=== PATIENT | male | born 1970 | race Caucasian/White ===

== ENCOUNTER → 2016-07-11 08:52 | Day surgery (SDC) | payer BC, OTHER ==
[~2016-07-11 08:52] MED LIST: Acetaminophen TAB* 325 MG PO PRN; Buffered Lidocaine 1% SYRIN* 3 ML/SYR SYRINGE INTRADERM ONE; Bupivacaine 0.5% W/EPI SDV* 30 ML VIAL ONE; Clindamycin 900 MG IVPREMIX(* 900 MG/50 ML SDV IV ONE; Dexamethasone IV* 4 MG/ML 1 ML (4 MG) ONE; HYDROmorphone* 1 MG/ML 1 ML SYR IV PRN; Ibuprofen TAB* 600 MG PO PRN; Lidocaine 2% PF* 5 ML VIAL ONE; Metoclopramide IV* 5 MG/ML 2 ML VIAL IV PRN; Metoclopramide IV* 5 MG/ML 2 ML VIAL ONE; Midazolam* 1 MG/ML 2 ML VIAL (2 MG) ONE; Ondansetron INJ* 2 MG/ML VIAL ONE; Propofol* 10 MG/ML 20 ML BTL IV PUSH ONE; Scopolamine 1.5 mg* PATCH ONE; Scopolamine 1.5 mg* PATCH TRANSDERM PRN; Succinylcholine* 20 MG/ML 10 ML VIAL ONE; fentaNYL* 50 MCG/ML 2 ML VIAL (100 MCG VIAL) ONE; oxyCODONE TAB* 5 MG TAB ONE; oxyCODONE TAB* 5 MG TAB PO PRN
[2016-07-11] MEDS: fentaNYL* 50 MCG/ML 2 ML VIAL (100 MCG VIAL) IV PRN ×4 (13:39→14:05)
[2016-07-11 15:01] VITALS: BP 113/58
--- NOTE | 2016-07-12 04:20 | OP ---
DATE OF OPERATION: 07/11/16 [facility] DATE OF : 68 SURGEON: Keny Jaimes MD PLASTIC MOLDING OPERATOR: None. ANESTHESIOLOGIST: Dr. Montoya. ANESTHESIA: General endotracheal. PRE-OP DIAGNOSIS: Right inguinal hernia and left groin pain. POST-OP DIAGNOSIS: Bilateral inguinal hernia. OPERATIVE PROCEDURE: Laparoscopic preperitoneal repair of bilateral inguinal hernias with mesh. ESTIMATED BLOOD LOSS: Minimal. IV FLUIDS: Crystalloid. SPECIMEN: None. DRAINS: None. COMPLICATIONS: None. COUNTS: The instrument, needle, and sponge counts were correct. DESCRIPTION OF PROCEDURE: The patient was brought to the operating room and placed on the table supine. Sequential compression devices were placed on both lower extremities. General anesthesia was administered. The Boudreaux catheter was placed and the abdomen was prepped and draped in the usual sterile fashion. Time-out was performed. Local anesthetic was infiltrated into the skin and soft tissue prior to making each incision. Entry to preperitoneal space was through an infraumbilical curvilinear incision made to accommodate a 12-mm blunt port. The rectus fascia was identified to the right of midline, incised transversely, and the underlying muscle was retracted laterally, and a preperitoneal balloon dissector was placed down to the pubic symphysis, and this was insufflated under direct visualization. Subsequently, this was removed and a 12-mm blunt port was placed into the same space and insufflated with carbon dioxide to a pressure of 12 mmHg. Under direct visualization, 5 mm trocars were placed two in the lower midline. The dissection then proceeded on the left side where the patient was noted to have a small indirect inguinal hernia. The inferior epigastric vessels were identified, preserved anteriorly and the dissection proceeded laterally to the anterior superior iliac spine. During the dissection of the peritoneal membrane, this was torn and had to be closed with endoscopic clip placement. The dissection did proceed completely dissecting the peritoneum away from the hernial orifices. Subsequently, attention was returned to the right side and again dissection proceeded bluntly from the midline laterally identifying the pubic tubercle, Copper's ligament and inferior epigastric vessels. There appeared to be a small direct indirect inguinal hernia and a small indirect inguinal hernia. Again, the peritoneal membrane was dissected free and then the repair was performed with Bard 3D Max medium size mesh. This was placed into the preperitoneal space and tacked to the pubic tubercle and Copper's ligament with the CapSure device. The mesh was allowed to lay out laterally and then the attention was returned to the left side. Again, the repair was performed with a Bard 3DMax mesh for the right side. The mesh was positioned to cover the direct, indirect and femoral spaces. It was secured with the CapSure device to pubic tubercle and Jimenez's ligament. The mesh was observed in its position as the preperitoneal space was allowed to collapse upon itself. Next, peritoneoscopy was performed to assure that there was no exposed mesh. Upon inspection of the left side, the mesh appeared good. However, on inspection of the right side, there was still small rent in the peritoneum and so we re-established the preperitoneal view and used a clip immigration patrol inspector to clip off the opening. Subsequently, reinspection from the intraperitoneal compartment revealed that there was no exposed mesh. At this point, ports were removed and carbon dioxide was released. The infraumbilical site was closed in 2 layers with 0 Polysorb to approximate both posterior and anterior rectus fascia. Skin incisions were closed with 4-0 Monocryl in subcuticular fashion. Steri-Strips were applied. The patient tolerated the procedure well. It was extubated and transferred to recovery room in stable condition. CC: Apple Werner MD* [id number] #: [id number]
== END | disposition home or self-care (01) ==
LOC: OR 08:52
PROVIDERS: ATTEND Surgery
DX: K40.20 Bilateral inguinal hernia, without obstruction or gangrene, not specified as recurrent (principal)
CPT/HCPCS: A9270-GY; C1776; C1781; J0330; J1100; J2250; J2405; J2704; J3010

== ENCOUNTER 2018-03-25 19:00 | Emergency (ER) | payer OTHER ==
--- OUTSIDE RECORDS SUMMARY | 2018-03-25 19:36 | XMS REPORT | Continuity of Care Document ---
:1970 External Reference #:[id number] Author Name Apple Werner MD Address [address] [place] [address] Care Team Providers Name Role Phone Apple Werner MD FACP Primary Care Physician Unavailable Payers Type Date Identification Numbers Payment Provider Subscriber Effective: Policy Number: [id number] Of [employer] Arita 2009 Expires: 2011 PayID: [id number] [address] [address] ALEC Pool [id number] Effective: 2011 Policy Number: [id number] Of ROB Arita Expires: 2015 Group Name: Ra Quiroz [address] [address] PayID: [id number] ALEC Pool [id number] Effective: 2015 Policy Number: [id number] [facility] Simone Arita PayID: [id number] [address] [place] [address] Advance Directives Description No Information Available Problems Date Description Provider Status Onset: 12/27/2011 Immunologic Apple Werner MD Active Note: Consult with Dr. Morgan 12/21/11. Onset: 04/24/2016 Nocturia Apple Werner MD Active Onset: 12/09/2013 Rheumatoid arthritis Apple Werner MD Active Onset: 12/09/2013 Inflammatory spondylopathy Apple Werner MD Active Onset: 12/09/2013 Non-neoplastic nevus Apple Werner MD Active Onset: 09/24/2008 Obstructive sleep apnea syndrome Apple Werner MD Inactive Inactive: 12/09/2013 Family History Date Family Member(s) Problem(s) Comments General Arthritis Mother General Bladder Cancer Maternal Grandfather General Depression Mother General Atrial Fibrillation Grandmother (maternal) General Deep Vein Thrombosis Mother General Heart Disease Maternal GF General Stroke Maternal GM General Diabetes Maternal GF General Hypertension Paternal GF General Bladder Cancer Maternal GF Father No Current Problems Mother Arthritis Second Brother Schizophrenia Second Brother Smoker Second Brother Vertigo Third Brother Obesity First Sister Smoker First Sister Depression First Sister Drug Addiction First Sister Obesity Paternal Grandfather due to Natural Causes () Paternal Grandmother due to Natural Causes () Maternal Grandfather due to Natural Causes () Maternal Grandmother due to Natural Causes () Maternal Grandmother due to Stroke () Maternal Grandmother Atrial Fibrillation Social History Type Date Description Comments Sex Unknown Marital Status Marital Status Significant Other 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 Work Status Currently Working Tobacco Use Start: Unknown Never Smoked Cigarettes ETOH Use Drinks Alcoholic Beverages Occasionally ETOH Use Drinks 2 Alcoholic Beverages Per Week ETOH Use Currently consumes 3 beer and or wine alcohol a week. Recreational Drug Use Denies Drug Use Tobacco Use Start: Unknown Patient has never smoked Smoking Status Reviewed: 04/25/17 Patient has never smoked Exercise Type/Frequency Exercises regularly 30-60 min cycling and elenita fu and gym activity Allergies, Adverse Reactions, Alerts Date Description Reaction Status Severity Comments 06/08/2008 Penicillins Skin Rashes/Hives Active "As a child" "Tolerated amoxicillin with no problem" Medications Medication Date Status Form Strength Qnty SIG Indications Ordering Provider Celecoxib 03/05 Active Capsules 200mg 30cap 1 by mouth M79.671 Chiu /2018 s every day A Wat[place], with food MD for 2 weeks and than as needed. Clonazepam 03/05 Active Tablets 1mg 14tab take 1 F51.02 Chiu s tablet by A [place], mouth at MD bed time for anxiety and insomnia Neurontin 01/02 Active Capsules 100mg 90cap take 1 B02.9 Chiu s capsule by A [place], mouth 3 MD times per day for nerve disease Famciclovir 12/31 Hx Tablets 500mg 21tab take 1 B02.9 Chiu s tablet by Thierry Werner - mouth 01/07 every hours for 7 days for skin eruption due to viral infection No Active 04/24 Hx Unknown Medications /2016 - 12/31 Pantoprazole 09/[address] 40mg 30tab take 1 R05 Chiu Sodium s tablet A Carlos Werner one-half before dinner Levocetirizine 08/17 Hx Tablets 5mg 30tab take one J30.9 Chiu Dihydrochloride /2015 s tablet by Carlos Camarena mouth in 04/24 the evening for allergic rhinitis Fluticasone 08/17 Hx Suspension 50mcg/Act 16gm inhale 2 J30.9 Chiu Propionate sprays Carlos Camarena into 04/24 nostril daily in each nostril for allergic rhinitis Vitamin B 12/10 Hx Capsules 1 by mouth 266.9 Chiu Complex-C every day Carlos Camarena MD 04/24 Betamethasone 09/28 Hx Cream 0.05% 15gm apply 380.9 Chiu Dipropionate topically Carlos Camarena to the MD 12/09 affected area two times a day for skin condition with itching Doxycycline 02/09 Hx Capsules 100mg 2caps take 1 Chui Hyclate /2013 capsule by Thierry Werner - mouth 2 02/10 times day for 1 day Ibuprofen 04/02 Hx Tablets 200mg take 3 719.49 Endo, tablets by Carlos Zhao mouth 2 04/24 times per day 720.9 714.0 Viagra 07/02/2012 - Hx Tablets 100mg 6tabs take 1/2 to 1 302.72 Chiu A 04/24/2016 tablet by MD Alphonso mouth daily as needed for erectile dysfunction Hydroxychloroquine 07/01/2012 - Hx Tablets 200mg Take 1 tablet 720.9 Endo, Sulfate 09/30/2014 by mouth Pavel twice daily with food or milk 714.0 Amoxicillin 01/11/2012 - Hx Tablets 500mg 21tabs Take 1 tablet 463 Chiu A 01/18/2012 by mouth 3 MD Alphonso times per day for 7 days for infection Ibuprofen 05/31/2010 - Hx Tablets 200mg 2-3 by mouth 719.49 Endo, 12/01/2013 every 6 hours MD Pavel as needed Clonazepam 05/23/2010 - Hx Tablets 0.5mg 15tabs 1/2-1 po bid 309.28 Chiu A 08/31/2010 prn MD Alphonso 780.52 Sulfamethoxazole-TMP DS 04/01/2009 - Hx Tablets 800-160mg 20tabs 1 po 682.6 Chiu A 04/11/2009 bid MD Alphonso Immunizations CPT Code Status Date Vaccine Lot # [id number] Given 12/31/2016 Influenza Vaccine Quadrivalent Preser/Antibiotic Free Im Use 96019 Given 01/01/2016 Influenza Virus Split 3 Yrs And Above For Intramuscular Use 89307 Given 11/30/2014 Influenza Virus Split 3 Yrs And Above For Intramuscular Use 50232 Given 01/02/2012 Pneumococcal Vaccine 2Yrs Or Older PNEUMO [id number] 89952 Given 12/16/2011 Influenza Virus Split 3 Yrs And Above For Intramuscular Use 41095 Given 07/07/2008 Tdap-Tetanus, Diphtheria Toxoids/Acellular TDAP [id number] Pertussis Vaccine 7+ 86103 Given 01/01/2008 Influenza Virus Vaccine Split Virus Use For Individual 3Yr Older [id number] Refused 12/09/2013 Influenza Virus Split 3 Yrs And Above For Intramuscular Use Vital Signs Date Vital Result Comment 07/23/2017 12:40pm Body Temperature 98.3 F 04/25/2017 2:22pm Body Temperature 98.4 F O2 % BldC Oximetry 99 % Heart Rate 52 /min BP Systolic 120 mmHg BP Diastolic 70 mmHg BMI (Body Mass Index) 27.9 kg/m2 Weight 169.00 lb Height 65.25 inches 5'5.25" 04/24/2016 3:28pm Body Temperature 98.5 F O2 % BldC Oximetry 97 % Heart Rate 74 /min BP Systolic 100 mmHg BP Diastolic 60 mmHg BMI (Body Mass Index) 27.2 kg/m2 Weight 165.00 lb Height 65.25 inches 5'5.25" 08/18/2015 3:12pm Body Temperature 98.2 F Heart Rate 62 /min BP Systolic 85 mmHg BP Diastolic 60 mmHg 12/10/2014 4:18pm O2 % BldC Oximetry 98 % Heart Rate 48 /min BP Systolic 95 mmHg BP Diastolic 65 mmHg BMI (Body Mass Index) 26.9 kg/m2 Weight 164.00 lb Height 65.5 inches 5'5.50" 11/20/2014 11:26am Body Temperature 98.6 F 09/28/2014 2:25pm Body Temperature 98.6 F 12/09/2013 3:57pm Body Temperature 98.7 F O2 % BldC Oximetry 98 % Heart Rate 61 /min BP Systolic 105 mmHg BP Diastolic 65 mmHg BMI (Body Mass Index) 29.3 kg/m2 Weight 176.00 lb in office, clothed, with shoes Height 65 inches 5'5" 07/02/2012 11:07am Heart Rate 76 /min BP Systolic 110 mmHg BP Diastolic 80 mmHg BMI (Body Mass Index) 30.4 kg/m2 Weight 183.00 lb Height 65 inches 5'5" 01/11/2012 12:04pm Body Temperature 98.2 F O2 % BldC Oximetry 97 % Ra, AT Rest Heart Rate 85 /min BP Systolic 100 mmHg BP Diastolic 75 mmHg Height 65 inches 5'5" 01/02/2012 11:48am Heart Rate 60 /min BP Systolic 100 mmHg BP Diastolic 70 mmHg BMI (Body Mass Index) 31.9 kg/m2 Weight 192.00 lb Height 65 inches 5'5" 09/11/2011 2:05pm Heart Rate 70 /min BP Systolic 105 mmHg BP Diastolic 70 mmHg BMI (Body Mass Index) 32.4 kg/m2 Weight 195.00 lb Height 65 inches 5'5" 05/23/2010 4:03pm BMI (Body Mass Index) 31.1 kg/m2 Weight 187.00 lb Height 65 inches 5'5" 04/01/2009 9:39am Body Temperature 98.6 F BMI (Body Mass Index) 31.9 kg/m2 Weight 192.00 lb Height 65 inches 5'5" 09/24/2008 11:58am Heart Rate 66 /min BP Systolic 100 mmHg Supine BP Diastolic 65 mmHg Supine BP Systolic Recheck 95 mmHg Standing BP Diastolic Recheck 65 mmHg Standing 08/12/2008 5:03pm Heart Rate 70 /min Standing 80 BP Systolic 110 mmHg Supine BP Diastolic 70 mmHg Supine BP Systolic Recheck 90 mmHg Standing, asymptomatic BP Diastolic Recheck 70 mmHg Standing, asymptomatic Height 65 inches 5'5" 07/07/2008 4:31pm Body Temperature 98.4 F O2 % BldC Oximetry 98 % Heart Rate 70 /min BP Systolic 130 mmHg Bilateral Ue BP Diastolic 70 mmHg Bilateral Ue BMI (Body Mass Index) 32.4 kg/m2 Weight 195.00 lb Height 65 inches 5'5" Results Test Date Facility Test Result H/L Range Note CBC W/Diff 01/01/2018 [facility] White Blood Count 4.1 RBC Red Blood Count 5.24 Hemoglobin 15.0 Hematocrit 46.3 MCV (Corpuscular Volume) 88 MCH (Corpuscular Hemoglobin) 28.7 MCHC (Corpuscular Hemog Conc) 32.5 Low 33.8-36.5 g/dL RDW 16 Platelet Count 117 Low 136-304 K/uL MPV 6.9 Neutrophils 54.1 Lymphocytes 32.4 Monocytes 10.3 Eosinophils Fluid 1.8 Basophils 1.3 BMP 01/01/2018 [facility] Calcium Level 9.1 Creatinine W/O Egfr 1.1 Sodium 142 Carbon Dioxide 29 Glucose 101 High <100 Chloride 106 High 97-104 mmol/L Potassium 4.6 BUN 12 CBC No Diff 04/21/2016 [facility] Hematocrit 44.1 Hemoglobin 15.3 Platelet Count 127 Low 212-272 K/uL RBC Red Blood Count 5.31 RDW 16.4 High 13.4-14.6% White Blood Count 7.2 MCH (Corpuscular Hemoglobin) 28.7 MCHC (Corpuscular Hemog Conc) 34.6 MPV 8.5 MCV (Corpuscular Volume) 83 CMP 04/21/2016 [facility] Albumin 4.5 Alt - SGPT 24 Calcium Level 9.1 Carbon Dioxide 26 Chloride 102 Creatinine W/O Egfr 1.1 Glucose 91 Alkaline Phosphatase 70 Potassium 4.1 Protein Total 6.9 Sodium 139 Ast - Sgot 25 BUN 13 High 8-11 mg/dL Albumin 4.5 Bilirubin Total 0.3 Laboratory test 04/21/2016 [facility] Vitamin B12 523 finding CBC No Diff 08/18/2015 [facility] White Blood 8.9 10^3/uL N 3.5-10.8 [place] [address] Count [phone] Red Blood Count 5.07 10^6/uL N 4.0-5.4 Hemoglobin 14.5 g/dL N 14.0-18.0 Hematocrit 43 % N 42-52 Mean Corpuscular Volume 85 fL N 80-94 Mean Corpuscular Hemoglobin 29 pg N 27-31 Mean Corpuscular HGB Conc 34 g/dL N 31-36 Red Cell Distribution Width 13 % N 10.5-15 Platelet Count 137 10^3/uL Low 150-450 Mean Platelet Volume 8 um3 N 7.4-10.4 Comp Metabolic Panel 08/18/2015 [facility] Sodium 141 mmol/L N 133-145 [place], [place] [id number] [phone] Potassium 4.0 mmol/L N 3.5-5.0 Chloride 106 mmol/L N 101-111 Co2 Carbon Dioxide 29 mmol/L N 22-32 Anion Gap 6 mmol/L N 2-11 Glucose 71 mg/dL N 70-100 Blood Urea Nitrogen 15 mg/dL N 6-24 Creatinine 0.90 mg/dL N 0.67-1.17 BUN/Creatinine Ratio 16.7 N 8-20 Calcium 9.0 mg/dL N 8.6-10.3 Total Protein 6.6 g/dL N 6.4-8.9 Albumin 4.3 g/dL N 3.2-5.2 Globulin 2.3 g/dL N 2-4 Albumin/Globulin Ratio 1.9 N 1-3 Total Bilirubin 0.50 mg/dL N 0.2-1.0 Alkaline Phosphatase 58 U/L N 34-104 Alt 13 U/L N 7-52 Ast 20 U/L N 13-39 Egfr Non- 91.3 N >60 Egfr 117.4 N >60 1 Laboratory test 08/18/2015 [facility] Erythrocyte Sed 8 mm/Hr N 0-14 [place] [address] Rate [phone] Lyme Western 08/18/2015 [facility] Lyme Disease IgG Negative [place] [address] Ab WB [phone] Lyme Disease IgG Bands Present p41, kDa N Lyme Disease IgM Ab WB Negative N Negative Lyme Disease IgM Bands Present No bands detecte <SEE NOTE> kDa N 2 Lyme Disease Interpretation See Comment N 3 Laboratory test 08/18/2015 [facility] TSH (Thyroid 1.19 ?IU/mL N 0.34-5.60 [place] [address] Stim Horm) [phone] CBC No Diff 12/10/2014 [facility] White Blood 4.6 10^3/uL Low 4.8-10.8 [place] [address] Count [phone] Red Blood Count 5.12 10^6/uL N 4.0-5.4 Hemoglobin 14.9 g/dL N 14.0-18.0 Hematocrit 46 % N 42-52 Mean Corpuscular Volume 89 fL N 80-94 Mean Corpuscular Hemoglobin 29 pg N 27-31 Mean Corpuscular HGB Conc 33 g/dL N 31-36 Red Cell Distribution Width 14 % N 10.5-15 Platelet Count 133 10^3/uL Low 150-450 Mean Platelet Volume 8 um3 N 7.4-10.4 Comp Metabolic Panel 12/10/2014 [facility] Sodium 139 mmol/L N 133-145 [place] [address] [phone] Potassium 4.6 mmol/L N 3.5-5.0 Chloride 106 mmol/L N 101-111 Co2 Carbon Dioxide 30 mmol/L N 22-32 Anion Gap 3 mmol/L N 2-11 Glucose 92 mg/dL N 70-100 Blood Urea Nitrogen 15 mg/dL N 6-24 Creatinine 0.83 mg/dL N 0.67-1.17 BUN/Creatinine Ratio 18.1 N 8-20 Calcium 9.0 mg/dL N 8.6-10.3 Total Protein 6.4 g/dL N 6.4-8.9 Albumin 4.2 g/dL N 3.2-5.2 Globulin 2.2 g/dL N 2-4 Albumin/Globulin Ratio 1.9 N 1-3 Total Bilirubin 0.50 mg/dL N 0.2-1.0 Alkaline Phosphatase 51 U/L N 34-104 Alt 12 U/L N 7-52 Ast 15 U/L N 13-39 Egfr Non- 100.2 N >60 Egfr 128.8 N >60 4 Laboratory test 12/10/2014 [facility] Vitamin B12 278 pg/mL N 180-914 5 [place] [address] [phone] Lipid Profile 12/10/2014 [facility] Triglycerides 81 mg/dL N 6 (Trig/Chol/HDL) [place], [place] [id number] [phone] Cholesterol 89 mg/dL N 7 HDL Cholesterol 35.3 mg/dL N 8 LDL Cholesterol 38 mg/dL N 9 Urinalysis Profile 12/10/2014 [facility] Urine Color Yellow N [place], [place] [id number] [phone] Urine Appearance Clear N Urine Specific [place] 1.012 N 1.010-1.030 Urine pH 6.0 N 5-9 Urine Urobilinogen Negative N Negative Urine Ketones Negative N Negative Urine Protein Negative N Negative Urine Leukocytes Negative N Negative Urine Blood Negative N Negative Urine Nitrite Negative N Negative Urine Bilirubin Negative N Negative Urine Glucose Negative N Negative Comp Metabolic Panel 07/15/2014 [facility] Sodium 140 mmol/L N 133-145 [place] [address] [phone] Potassium 4.7 mmol/L N 3.5-5.0 Chloride 107 mmol/L N 101-111 Co2 Carbon Dioxide 31 mmol/L N 22-32 Anion Gap 2 mmol/L N 2-11 Glucose 68 mg/dL Low 70-100 Blood Urea Nitrogen 13 mg/dL N 6-24 Creatinine 0.84 mg/dL N 0.67-1.17 BUN/Creatinine Ratio 15.5 N 8-20 Calcium 9.0 mg/dL N 8.6-10.3 Total Protein 6.4 g/dL N 6.4-8.9 Albumin 4.3 g/dL N 3.2-5.2 Globulin 2.1 g/dL N 2-4 Albumin/Globulin Ratio 2.0 N 1-3 Total Bilirubin 0.50 mg/dL N 0.2-1.0 Alkaline Phosphatase 47 U/L N 34-104 Alt 15 U/L N 7-52 Ast 19 U/L N 13-39 Egfr Non- 99.3 N >60 Egfr 127.7 N >60 10 Laboratory test 07/15/2014 [facility] C Reactive < 1.00 N < 5.00 11 [place] [address] Protein mg/L [phone] CBC Auto Diff 07/15/2014 [facility] White Blood 3.4 Low 4.8- 10.8 [place] [address] Count 10^3/uL [phone] Red Blood Count 5.04 10^6/uL N 4.0-5.4 Hemoglobin 15.0 g/dL N 14.0-18.0 Hematocrit 45 % N 42-52 Mean Corpuscular Volume 89 fL N 80-94 Mean Corpuscular Hemoglobin 30 pg N 27-31 Mean Corpuscular HGB Conc 34 g/dL N 31-36 Red Cell Distribution Width 13 % N 10.5-15 Platelet Count 139 10^3/uL Low 150-450 Mean Platelet Volume 8 um3 N 7.4-10.4 Abs Neutrophils 2.1 10^3/uL N 1.5-7.7 Abs Lymphocytes 1.0 10^3/uL N 1.0-4.8 Abs Monocytes 0.3 10^3/uL N 0-0.8 Abs Eosinophils 0.1 10^3/uL N 0-0.6 Abs Basophils 0 10^3/uL N 0-0.2 Abs Nucleated RBC 0.02 10^3/uL N Granulocyte % 59.8 % N 38-83 Lymphocyte % 28.1 % N 25-47 Monocyte % 9.9 % High 1-9 Eosinophil % 1.5 % N 0-6 Basophil % 0.7 % N 0-2 Nucleated Red Blood Cells % 0.4 N Laboratory test 07/15/2014 [facility] Erythrocyte Sed 6 mm/Hr N 0-14 [place] [address] Rate [phone] Comp Metabolic 01/08/2014 [facility] Sodium 138 mmol/L N 133- 145 [place] [address] [phone] Potassium 4.4 mmol/L N 3.7-5.6 Chloride 105 mmol/L N 101-111 Co2 Carbon Dioxide 29 mmol/L N 22-32 Anion Gap 4 mmol/L N 2-11 Glucose 84 mg/dL N 70-100 Blood Urea Nitrogen 12 mg/dL N 6-24 Creatinine 0.88 mg/dL N 0.67-1.17 BUN/Creatinine Ratio 13.6 N 8-20 Calcium 8.8 mg/dL N 8.6-10.3 Total Protein 6.5 g/dL N 6.4-8.9 Albumin 4.2 g/dL N 3.2-5.2 Globulin 2.3 g/dL N 2-4 Albumin/Globulin Ratio 1.8 N 1-3 Total Bilirubin 0.40 mg/dL N 0.2-1.0 Alkaline Phosphatase 40 U/L N 34-104 Alt 16 U/L N 7-52 Ast 19 U/L N 13-39 Egfr Non- 94.1 N >60 Egfr 121.0 N >60 12 Laboratory test 01/08/2014 [facility] C Reactive < 1.00 N < 5.00 13 [place] [address] Protein mg/L [phone] CBC With Manual 01/08/2014 [facility] White Blood 5.4 N 4.8- 10.8 [place] [address] Count 10^3/uL [phone] Red Blood Count 5.09 10^6/uL N 4.0-5.4 Hemoglobin 14.8 g/dL N 14.0-18.0 Hematocrit 43 % N 42-52 Mean Corpuscular Volume 85 fL N 80-94 Mean Corpuscular Hemoglobin 29 pg N 27-31 Mean Corpuscular HGB Conc 34 g/dL N 31-36 Red Cell Distribution Width 13 % N 10.5-15 Platelet Count 141 10^3/uL Low 150-450 Mean Platelet Volume 7 um3 Low 7.4-10.4 Abs Neutrophils 3.6 10^3/uL N 1.5-7.7 Abs Lymphocytes 1.2 10^3/uL N 1.0-4.8 Abs Monocytes 0.4 10^3/uL N 0-0.8 Abs Eosinophils 0.1 10^3/uL N 0-0.6 Abs Basophils 0 10^3/uL N 0-0.2 Abs Nucleated RBC 0 10^3/uL N Neutrophil % 70 % N 38-83 Lymphocytes % 26 % N 25-47 Monocytes % 3 % N 0-13 Eosinophils % 1 % N 0-6 RBC Morphology Normal N Normal Laboratory test 01/08/2014 [facility] Erythrocyte Sed 5 mm/Hr N 0-14 [place] [address] Rate [phone] Cyclic Citrullinated Pept IgG 33.9 U Abnormal 14 CBC No Diff 07/02/2012 [facility] White Blood 4.9 10^3/uL 4.8 -10.8 [place] [address] Count [phone] Red Blood Count 5.39 10^6/uL 4.0-5.4 Hemoglobin 15.4 g/dL 14.0-18.0 Hematocrit 46 % 42-52 Mean Corpuscular Volume 86 fL 80-94 Mean Corpuscular Hemoglobin 29 pg 27-31 Mean Corpuscular HGB Conc 33 g/dL 31-36 Red Cell Distribution Width 14 % 10.5-15 Platelet Count 138 10^3/uL Low 150-450 Mean Platelet Volume 8 um3 7.4-10.4 Comp Metabolic Panel 07/02/2012 [facility] Sodium 139 mmol/L 133-145 [place] [address] [phone] Potassium 4.4 mmol/L 3.5-5.0 Chloride 105 mmol/L 101-111 Co2 Carbon Dioxide 29.0 mmol/L 22-32 Anion Gap 5.0 mmol/L 2-11 Glucose 97 mg/dL 70-100 Blood Urea Nitrogen 13 mg/dL 6-24 Creatinine 1.10 mg/dL 0.50-1.40 BUN/Creatinine Ratio 11.8 8-20 Calcium 9.2 mg/dL 8.1-9.9 Total Protein 6.2 g/dL 6.2-8.1 Albumin 4.1 g/dL 3.6-5.4 Globulin 2.1 g/dL 2-4 Albumin/Globulin Ratio 2.0 1-3 Total Bilirubin 0.9 mg/dL 0.4-1.5 Alkaline Phosphatase 63 U/L 30-110 Alt 18 U/L 14-54 Ast 20 U/L 12-42 Egfr Non- 73.4 >60 Egfr 94.4 >60 15 Lipid Profile 07/02/2012 [facility] Triglycerides 71 mg/dL 40 -200 (Trig/Chol/HDL) [place] [address] [phone] Cholesterol 103 mg/dL Less than 200 HDL Cholesterol 31 mg/dL Low 40-60 16 Cholesterol/HDL Ratio 3.3 Average 1-4.44 LDL Cholesterol 57.8 mg/dL High Less Than 130 17 CBC No Diff 04/20/2012 [facility] White Blood 5.3 10^3/uL 4.8 -10.8 [place] [address] Count [phone] Red Blood Count 5.25 10^6/uL 4.0-5.4 Hemoglobin 14.8 g/dL 14.0-18.0 Hematocrit 46 % 42-52 Mean Corpuscular Volume 87 fL 80-94 Mean Corpuscular Hemoglobin 28 pg 27-31 Mean Corpuscular HGB Conc 33 g/dL 31-36 Red Cell Distribution Width 14 % 10.5-15 Platelet Count 146 10^3/uL Low 150-450 Mean Platelet Volume 7 um3 Low 7.4-10.4 Laboratory test 01/02/2012 [facility] Hemoglobin A1c 5.4 Low 6-[address] [place] [address] [phone] Comp Metabolic 12/21/2011 [facility] Sodium 138 135-145 [place] [address] mmol/L [phone] Potassium 4.3 mmol/L 3.5-5.0 Chloride 106 mmol/L 101-111 Co2 (Carbon Dioxide) 28.0 mmol/L 22-32 Anion Gap 4.0 mmol/L 2-11 18 Glucose 95 mg/dL 70-100 BUN 15 mg/dL 6-24 Creatinine 1.0 mg/dL 0.50-1.40 One Over Creatinine 1.00 BUN/Creatinine Ratio 15.0 8-20 Calcium 9.4 mg/dL 8.1-9.9 Total Protein 6.9 GM/DL 6.2-8.1 Albumin 4.3 GM/DL 3.6-5.4 Globulin 2.6 GM/DL 2-4 Albumin/Globulin Ratio 1.7 1-3 Bilirubin Total 0.7 mg/dL 0.4-1.5 19 Alkaline Phosphatase 55 U/L 39-117 Alt (SGPT) 22 U/L 17-63 Ast (Sgot) 23 U/L 12-42 eGFR Non- 81.9 > 60 eGFR 105.4 > 60 20 Laboratory test 12/21/2011 [facility] CPK (Creatine 104 U/L 0 -200 [place] [address] Kinase) [phone] Thyroxine Free 0.77 ng/dL 0.61-1.24 C Reactive Protein < 0.5 mg/dL Less Than 0.5 CBC With Manual 12/21/2011 [facility] White Blood 5.3 CUMM 4.8-10.8 [place] [address] Count [phone] Red Cell Count 5.26 CUMM 4.6-6.2 Hemoglobin 14.9 g/dL 14.0-18.0 Hematocrit 45 % 42-52 Mean Corpuscular Volume 85 um3 80-94 Mean Corpuscular Hemoglob 28 pg 27-31 Mean Corpuscular HGB Cone 33 g/dL 32-36 Redcell Distribution WDTH 14 % 10.5-15 Platelet Count 143 CUMM Low 150-450 Mean Platelet Volume 7.8 um3 7.4-10.4 Absolute Neutrophil Count 3.0 1.5-7.7 Polysegmented Neutrophil 65 % 38-83 Lymphocyte 29 % 25-47 Monocyte 4 % 0-13 Atypical Lymph 2 % 0-6 NRBC 1 High 0-0 Anisocytosis SLIGHT Laboratory test 12/21/2011 [facility] Erythrocyte Sed 9 MM/HR 0-15 [place] [address] Rate [phone] Melania 12/21/2011 [facility] Antinuclear AB NEGATIVE Negative ([place] [address] Antibodies) [phone] Laboratory test 12/21/2011 [facility] Ralph Screen NEGATIVE Negative 21 [place] [address] [phone] Hla B27 Positive () 22 CBC No Diff 09/13/2011 [facility] White Blood Count 5.6 CUMM 4.8-10.8 [place] [address] [phone] Red Cell Count 5.00 CUMM 4.6-6.2 Hemoglobin 14.3 g/dL 14.0-18.0 Hematocrit 42 % 42-52 Mean Corpuscular Volume 85 um3 80-94 Mean Corpuscular Hemoglob 29 pg 27-31 Mean Corpuscular HGB Cone 34 g/dL 32-36 Redcell Distribution WDTH 14 % 10.5-15 Platelet Count 156 CUMM 150-450 Mean Platelet Volume 7.8 um3 7.4-10.4 Comp Metabolic Panel 09/13/2011 [facility] Sodium 140 mmol/L 135-145 [place] [address] [phone] Potassium 3.7 mmol/L 3.5-5.0 Chloride 107 mmol/L 101-111 Co2 (Carbon Dioxide) 28.0 mmol/L 22-32 Anion Gap 5.0 mmol/L 2-11 23 Glucose 106 mg/dL High 70-100 BUN 11 mg/dL 6-24 Creatinine 1.0 mg/dL 0.50-1.40 One Over Creatinine 1.00 BUN/Creatinine Ratio 11.0 8-20 Calcium 9.0 mg/dL 8.1-9.9 Total Protein 6.7 GM/DL 6.2-8.1 Albumin 4.1 GM/DL 3.6-5.4 Globulin 2.6 GM/DL 2-4 Albumin/Globulin Ratio 1.6 1-3 Bilirubin Total 0.7 mg/dL 0.4-1.5 24 Alkaline Phosphatase 61 U/L 39-117 Alt (SGPT) 26 U/L 17-63 Ast (Sgot) 27 U/L 12-42 eGFR Non- 81.9 > 60 eGFR 105.4 > 60 25 Laboratory test 09/13/2011 [facility] Rheumatoid < 15 IU/mL < 15 26 [place] [address] Factor [phone] Uric Acid 5.0 mg/dL 2.6-7.2 TSH 1.72 MIU/ML 0.34-5.60 Cyclic Citrullinated Pep Igg 41.3 U Abnormal () 27 Melania (Antinuclear 09/13/2011 [facility] Antinuclear AB NEGATIVE Negative Antibodies) [place] [address] [phone] Laboratory test 09/13/2011 [facility] Erythrocyte Sed 7 MM/HR 0-15 [place] [address] Rate [phone] C Reactive Protein 0.6 mg/dL High Less Than 0.5 CPK (Creatine Kinase) 282 U/L High 0-200 Throat-Beta 10/01/2008 [facility] Throat-Beta NF 28 [place] [address] Strep Culture [phone] Laboratory test 09/15/2008 [facility] Cortisol 13.6 29, 30 [place] [address] g/dL [phone] Laboratory test 09/15/2008 [facility] Cortisol 26.4 31, 32 [place] [address] g/dL [phone] Laboratory test 09/15/2008 [facility] Cortisol 28.5 33 [place] [address] g/dL [phone] Laboratory test 09/15/2008 [facility] Cortisol 31.9 34 [place] [address] g/dL [phone] Laboratory test 07/13/2008 [facility] TSH 1.07 0.34- [place] [place] [address] MIU/ML 5.60 [phone] Cortisol 4.6 g/dL Low 8.7-22.4 35 Insulin 11 uU/mL 2.6-25 36 C Peptide 07/13/2008 [facility] C-Peptide ng/mL 2.6 ng/mL 0.9 -4.3 [place] [address] [phone] C-Peptide pmol/L 858 pmol/L 297-1419 37 Lipid Profile 07/13/2008 [facility] Triglyceride 106 mg/dL 40 -200 (Trig/Chol/HDL) [place], [place] [id number] [phone] Cholesterol 123 mg/dL Less Than 200 38 High Density Lipoprotein 27 mg/dL Low 40-60 39 Cholesterol/HDL Ratio 4.56 AVERAGE 1-4.97 Low Density Lipoprotein 75 mg/dL Less Than 100 40 Urinalysis 07/13/2008 [facility] Ua Color YELLOW [place], [place] [id number] [phone] Appearance-Urine CLEAR Specific [place]-Ur 1.015 1.010-1.030 Esterase-Urine NEGATIVE Negative Nitrite NEGATIVE Negative Walysxpnbjnh-Al-NOR NEGATIVE Negative Protein-Urine NEGATIVE Negative PH-Urine 7.0 5-9 Blood-Urine NEGATIVE Negative Ketones-Urine NEGATIVE Negative Bilirubin-Ur NEGATIVE Negative Glucose-Urine NEGATIVE Negative Comp Metabolic Panel 07/13/2008 [facility] Sodium 140 mmol/L 135-145 [place], [place] [id number] [phone] Potassium 4.5 mmol/L 3.5-5.0 Chloride 105 mmol/L 101-111 Co2 (Carbon Dioxide) 31.0 mmol/L 22-32 Anion Gap 4.0 mmol/L 2-11 41 Glucose 85 mg/dL 70-100 42 BUN 15 mg/dL 6-24 Creatinine 0.98 mg/dL 0.50-1.40 One Over Creatinine 1.00 BUN/Creatinine Ratio 15.3 8-20 Calcium 9.2 mg/dL 8.1-9.9 43 Total Protein 7.6 GM/DL 6.2-8.1 Albumin 4.2 GM/DL 3.6-5.4 Globulin 3.4 GM/DL 2-4 Albumin/Globulin Ratio 1.2 1-3 Bilirubin Total 1.1 mg/dL 0.4-1.5 Alkaline Phosphatase 60 U/L 39-117 Alt (SGPT) 21 U/L 17-63 Ast (Sgot) 21 U/L 12-42 Hemogram 07/13/2008 [facility] White Blood Count 4.8 CUMM 4.8 -10.8 [place] [address] [phone] Red Cell Count 5.42 CUMM 4.6-6.2 Hemoglobin 15.5 g/dL 14.0-18.0 Hematocrit 46 % 42-52 Mean Corpuscular Volume 84 um3 80-94 Mean Corpuscular Hemoglob 29 pg 27-31 Mean Corpuscular HGB [facility] 34 g/dL 32-36 Platelet Count 161 CUMM 150-450 1 Because ethnic data is not always readily available, this report includes an eGFR for both -Americans and non- Americans. The National Kidney Disease Education Program (NKDEP) does not endorse the use of the MDRD equation for patients that are not between the ages of 18 and 70, are , have extremes of body size, muscle mass, or nutritional status, or are non- or non-. According to the National Kidney Foundation, irrespective of diagnosis, the stage of the disease is based on the level of kidney function: Stage Description GFR(mL/min/1.73 m(2)) 1 Kidney damage with normal or decreased GFR 90 2 Kidney damage with mild decrease in GFR 60-89 3 Moderate decrease in GFR 30-59 4 Severe decrease in GFR 15-29 5 Kidney failure <15 (or dialysis) 2 No bands detected 3 Specific serologic response to B. burgdorferi infection is not detected, but cannot rule out early infection during which low or undetectable antibody levels to B. burgdorferi may be present. If clinically indicated, a new serum specimen should be submitted in 7-14 days. ADDITIONAL INFORMATION CDC criteria require >=5 bands for IgG or >=2 bands for IgM for the Immunoblot to be considered positive. Bands (e.g.,p41) may be detected in patients without Lyme disease, and patterns not meeting the CDC criteria should be interpreted with caution. Immunoblot should be ordered only on specimens that are positive or equivocal by a FDA-licensed Lyme disease antibody screening test (e.g., EIA). Test Performed by: [place] [address] Reliability Manager: Fan Velazquez II, M.D., Ph.D. 4 Because ethnic data is not always readily available, this report includes an eGFR for both -Americans and non- Americans. The National Kidney Disease Education Program (NKDEP) does not endorse the use of the MDRD equation for patients that are not between the ages of 18 and 70, are , have extremes of body size, muscle mass, or nutritional status, or are non- or non-. According to the National Kidney Foundation, irrespective of diagnosis, the stage of the disease is based on the level of kidney function: Stage Description GFR(mL/min/1.73 m(2)) 1 Kidney damage with normal or decreased GFR 90 2 Kidney damage with mild decrease in GFR 60-89 3 Moderate decrease in GFR 30-59 4 Severe decrease in GFR 15-29 5 Kidney failure <15 (or dialysis) 5 Normal Range 180 to 914 Indeterminate Range 145 to 180 Deficient Range <145 6 Desirable <150 Borderline high 150-199 High 200-499 Very High >500 7 Desirable <200 Borderline high 200-239 High >239 8 Low <40 Desirable: 40-60 High: >60 9 Desirable: <100 mg/dL Near Optimal: 100-129 mg/dL Borderline High: 130-159 mg/dL High: 160-189 mg/dL Very High: >189 mg/dL 10 Because ethnic data is not always readily available, this report includes an eGFR for both -Americans and non- Americans. The National Kidney Disease Education Program (NKDEP) does not endorse the use of the MDRD equation for patients that are not between the ages of 18 and 70, are , have extremes of body size, muscle mass, or nutritional status, or are non- or non-. According to the National Kidney Foundation, irrespective of diagnosis, the stage of the disease is based on the level of kidney function: Stage Description GFR(mL/min/1.73 m(2)) 1 Kidney damage with normal or decreased GFR 90 2 Kidney damage with mild decrease in GFR 60-89 3 Moderate decrease in GFR 30-59 4 Severe decrease in GFR 15-29 5 Kidney failure <15 (or dialysis) 11 Acute inflammation: >10.00 12 Because ethnic data is not always readily available, this report includes an eGFR for both -Americans and non- Americans. The National Kidney Disease Education Program (NKDEP) does not endorse the use of the MDRD equation for patients that are not between the ages of 18 and 70, are , have extremes of body size, muscle mass, or nutritional status, or are non- or non-. According to the National Kidney Foundation, irrespective of diagnosis, the stage of the disease is based on the level of kidney function: Stage Description GFR(mL/min/1.73 m(2)) 1 Kidney damage with normal or decreased GFR 90 2 Kidney damage with mild decrease in GFR 60-89 3 Moderate decrease in GFR 30-59 4 Severe decrease in GFR 15-29 5 Kidney failure <15 (or dialysis) 13 Acute inflammation: >10.00 14 Interpretation: Weak Positive (20.0-39.9) REFERENCE VALUE <20.0 (Negative) Test Performed by: [facility] [address] [address] Reliability Manager: Rock Vidal M.D. 15 Because ethnic data is not always readily available, this report includes an eGFR for both -Americans and non- Americans. The National Kidney Disease Education Program (NKDEP) does not endorse the use of the MDRD equation for patients that are not between the ages of 18 and 70, are , have extremes of body size, muscle mass, or nutritional status, or are non- or non-. According to the National Kidney Foundation, irrespective of diagnosis, the stage of the disease is based on the level of kidney function: Stage Description GFR(mL/min/1.73 m(2)) 1 Kidney damage with normal or decreased GFR 90 2 Kidney damage with mild decrease in GFR 60-89 3 Moderate decrease in GFR 30-59 4 Severe decrease in GFR 15-29 5 Kidney failure <15 (or dialysis) 16 HDL Interpretation: Undesirable: High Risk: Less than 40 MG/DL Desirable: Low Risk: Greater than 60 MG/DL 17 LDL Interpretation: Low Risk Optimal Level: LDL Less than 100 MG/DL Near or Above Optimal: LDL 100-129 MG/DL Borderline High Risk: LDL 130-159 MG/DL High Risk: LDL 160-189 MG/DL Very High Risk: LDL Greater than 189 MG/DL 18 Anion gap measurement may be of limited value in the presence of any alkalosis, especially in a combined acid base disorder. . 19 A metabolite of Naproxen, O-desmethylnaproxen, has been shown to interfere with the Jendrassik-Arcanum method for measuring total bilirubin. Samples from patients who have taken Naproxen have shown spurious elevation in total bilirubin levels. 20 Because ethnic data is not always readily available, this report includes an eGFR for both -Americans and non- Americans. The National Kidney Disease Education Program (NKDEP) does not endorse the use of the MDRD equation for patients that are not between the ages of 18 and 70, are , have extremes of body size, muscle mass, or nutritional status, or are non- or non-. According to the National Kidney Foundation, irrespective of diagnosis, the stage of the disease is based on the level of kidney function: Stage Description GFR(mL/min/1.73 m(2)) 1 Kidney damage with normal or decreased GFR 90 2 Kidney damage with mild decrease in GFR 60-89 3 Moderate decrease in GFR 30-59 4 Severe decrease in GFR 15-29 5 Kidney failure <15 (or dialysis) 21 The above RALPH screen is designed for the detection of antibodies to extractable nuclear antigen (RALPH) in human serum. It is a combination test for the detection of antibodies to ABSTRACT MAKER, Sm, SS-A (Ro), and SS-B (La) nuclear antigens. 22 -- REFERENCE VALUE -- Not Applicable 23 Anion gap measurement may be of limited value in the presence of any alkalosis, especially in a combined acid base disorder. . 24 A metabolite of Naproxen, O-desmethylnaproxen, has been shown to interfere with the Jendrassik-Arcanum method for measuring total bilirubin. Samples from patients who have taken Naproxen have shown spurious elevation in total bilirubin levels. 25 Because ethnic data is not always readily available, this report includes an eGFR for both -Americans and non- Americans. The National Kidney Disease Education Program (NKDEP) does not endorse the use of the MDRD equation for patients that are not between the ages of 18 and 70, are , have extremes of body size, muscle mass, or nutritional status, or are non- or non-. According to the National Kidney Foundation, irrespective of diagnosis, the stage of the disease is based on the level of kidney function: Stage Description GFR(mL/min/1.73 m(2)) 1 Kidney damage with normal or decreased GFR 90 2 Kidney damage with mild decrease in GFR 60-89 3 Moderate decrease in GFR 30-59 4 Severe decrease in GFR 15-29 5 Kidney failure <15 (or dialysis) 26 Test Performed by: [place] [address] Reliability Manager: Norbert Lewis III, M.D. 27 Interpretation: Positive (40.0-59.9) -- REFERENCE VALUE -- <20.0 (Negative) Test Performed by: [place] [address] Reliability Manager: Norbert Lewis III, M.D. 28 NEGATIVE FOR GROUP A BETA STREPTOCOCCUS 29 BASELINE 30 REFERENCE RANGE: AM 8.7-22.4 PM LESS THAN 10 . 31 30 MINUTE 32 REFERENCE RANGE: AM 8.7-22.4 PM LESS THAN 10 . 33 REFERENCE RANGE: AM 8.7-22.4 PM LESS THAN 10 . 34 REFERENCE RANGE: AM 8.7-22.4 PM LESS THAN 10 . 35 REFERENCE RANGE: AM 8.7-22.4 PM LESS THAN 10 . 36 Test Performed by: [facility] [address] [place] [address] Reliability Manager: Norbert Lewis III, M.D. 37 Test Performed by: [facility] [address] [place] [address] Reliability Manager: Norbert Lewis III, M.D. 38 CHOLESTEROL INTERPRETATION: Desirable: Less than 200 MG/DL Borderline-High Risk: 200-239 MG/DL High-Risk: 240 MG/DL and over 39 HDL INTERPRETATION: Undesirable: High Risk: Less than 40 MG/DL Desirable: Low Risk: Greater than 60 MG/DL 40 LDL INTERPRETATION: Low Risk Optimal Level: LDL Less than 100 MG/DL Near or Above Optimal: LDL 100-129 MG/DL Borderline High Risk: LDL 130-159 MG/DL High Risk: LDL 160-189 MG/DL Very High Risk: LDL Greater than 189 MG/DL 41 Anion gap measurement may be of limited value in the presence of any alkalosis, especially in a combined acid base disorder. . 42 Note change in reference range as of 11/21/07. The change was based on recommendations from the [place] [employer] [employer]. 43 Please note change in reference range effective 07 . Procedures Date Code Description Status 04/01/2009 [address]31 I & D Abscess Simple Completed Encounters Type Date Location Provider Dx Diagnosis Office Visit 03/05/2018 Main Office Apple Werner M79.671 Pain in right foot 12:40p F43.23 Adjustment disorder with mixed anxiety and depressed mood F51.02 Adjustment insomnia Office Visit 12/31/2017 12:00p Main Office Apple Guadarrama B02.9 Zoster without MD [place] complications Office Visit 07/23/2017 12:20p Main Office Apple Guadarrama H68.001 Unspecified MD [place] Eustachian salpingitis, right ear R10.32 Left lower quadrant pain Office Visit 04/25/2017 2:20p Main Office Apple Guadarrama Z00.01 Encounter for MD [place] general adult medical exam w abnormal findings R35.1 Nocturia Office Visit 06/26/2016 2:00p Main Office Apple Werner, R10.32 Left lower MD quadrant pain K40.20 Bi inguinal hernia, w/o obst or gangrene, not spcf as recur Office Visit 04/24/2016 3:00p Main Office Apple Guadarrama Z00.01 Encounter for MD [place] general adult medical exam w abnormal findings R35.1 Nocturia Office Visit 09/02/2015 4:00p Main Office Apple Werner MD R05 Cough J30.9 Allergic rhinitis, unspecified R53.83 Other fatigue Office Visit 08/18/2015 3:00p Main Office Apple Werner MD R53.83 Other fatigue J30.9 Allergic rhinitis, unspecified Office Visit 12/10/2014 3:20p Main Office Apple Guadarrama V70.0 Examination General MD [place] Medical Routine AT [facility] 266.9 Vitamin B Deficiency Unspec 788.43 Nocturia Office Visit 11/20/2014 10:40a Main Office Apple Guadarrama 381.81 Eustachian Tube MD [place] Dysfunction Office Visit 09/28/2014 2:00p Main Office Apple Guadarrama 380.9 Ear External MD [place] Unspecified Disorder Office Visit 12/09/2013 3:40p Main Office Apple Guadarrama V70.0 Examination General MD [facility] Medical Routine AT [facility] 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 714.0 Rheumatoid Arthritis Office Visit 07/02/2012 11:00a Main Office Apple Werner, 790.21 Impaired Fasting MD Glucose 287.5 Thrombocytopenia Unspec 327.23 Obstructive Sleep Apnea Adult & Pediatric 302.72 Psychosexual Dysfunction W/ Inhibited Sexual Excitement Office Visit 01/11/2012 11:40a Main Office Apple Werner, 463 Tonsillitis Acute MD 465.0 Laryngopharyngitis Acute Office Visit 01/02/2012 12:00p Main Office Apple Guadarrama 795.79 Immunological MD [place] Findings Nonspec Other & Unspec 719.49 Pain Joint Multiple Sites 790.21 Impaired Fasting Glucose 327.23 Obstructive Sleep Apnea Adult & Pediatric 287.5 Thrombocytopenia Unspec V03.82 Streptococcus Pneumoniae Vaccination Spec Other Office Visit 09/11/2011 2:00p Main Office Apple Werner, 719.49 Pain Joint MD Multiple Sites 327.23 Obstructive Sleep Apnea Adult & Pediatric 214.1 Lipoma Other Skin And Subcutaneous Tissue Office Visit 05/23/2010 Main Office Apple Guadarrama 309.28 Adjustment Disorder With 3:40p MD [place] Anxiety/Depression 780.52 Insomnia Unspecified Office Visit 04/01/2009 9:20a Main Office Apple Guadarrama 682.6 Cellulitis & MD [place] Abscess Leg Except Foot 327.23 Obstructive Sleep Apnea Adult & Pediatric Office Visit 09/24/2008 11:20a Main Office Apple Guadarrama 327.23 Obstructive Sleep MD [place] Apnea Adult & Pediatric 251.2 Hypoglycemia Other Unspec 780.79 Malaise And Fatigue Other Office Visit 08/12/2008 4:40p Main Office Apple Werner 780.79 Malai And MD Fatigue Other 251.2 Hypoglycemia Other Unspec 307.49 Sleep Disorder Other Office Visit 07/07/2008 4:20p Main Office Apple Guadarrama V70.0 Examination General MD [place] Medical Routine AT [facility] Care Facility 780.79 Malaise And Fatigue Other 307.49 Sleep Disorder Other 251.2 Hypoglycemia Other Unspec 786.09 Dyspnea & Respiratory Abnormalities Other V06.1 Iokbxrhwnm-Szmtbhk-Vmszxske Combined (DTaP) Plan of Treatment Future Appointment(s):04/29/2018 12:20 pm - Apple Werner MD at Main Yqknbf4003/05/2018 - Apple Werner MDM79.671 Pain in right footNew Medication :Celecoxib 200 mg - 1 by mouth every day with food for 2 weeks and than as needed.New Therapy:Comments:Treatment options with potential risks, general precautions, follow up recommendations, and alternative treatment options discussed with patient in detail. Patient verbalized understanding. Lifestyle and dietary modifications advised. Medications related potential side effects, general precautions, follow up recommendations discussed with patient in detail. Patient verbalized understanding.F43.23 Adjustment disorder with mixed anxiety and depressed moodComments:Advised counseling.F51.02 Adjustment insomniaNew Medication:Clonazepam 1 mg - take 1 tablet by mouth at bed time for anxiety and insomniaComments:Lifestyle and dietary modifications advised. Treatment options with potential risks, general precautions, follow up recommendations, and alternative treatment options discussed with patient in detail.Patient verbalized understanding. Medications related potential side effects, general precautions, follow up recommendations discussed with patient in detail. Patient verbalized understanding.
[2018-03-25] MEDS ORDERED: Ketorolac INJ* 30 MG/ML 1 ML VIAL IV PUSH ONE (19:39)
[2018-03-25] MEDS ORDERED: NS 0.9% 1000 ML* 1,000 ML IV ONE (19:39)
[2018-03-25] MEDS ORDERED: Morphine VIAL* 4 MG/ML VIAL (1 ml vial) IV ONE (19:40)
[2018-03-25] MEDS ORDERED: Metoclopramide IV* 5 MG/ML 2 ML VIAL IV SLOW PU ONE (19:40)
--- NOTE | 2018-03-25 19:45 | ED ---
Abdominal Pain/Male - HPI Summary HPI Summary: This patient is a 47 year old male presenting to [facility] with a chief complaint of abd/flank pain since yesterday morning, at 0800. The pain is located in the LLQ. The pain radiates to his back, but not to the groin. The pain is rated 3/ 10 in severity. The pain worsened today and especially over the last 2 hours. Symptoms aggravated by nothing. Symptoms alleviated by nothing. Patient additionally reports nausea. Patient denies dysuria, hematuria. Patient admits a hx of renal calculi. - History of Current Complaint Stated Complaint: ABD PAIN Hx Obtained From: Patient Onset/Duration: Lasting Days, Still Present Timing: Constant Severity Currently: Mild Pain Intensity: 3 Pain Scale Used: 0-10 Numeric Location: Discrete At: LLQ, Flank Radiates: Yes Radiates to: Back Aggravating Factor(s): Nothing Alleviating Factor(s): Nothing Associated Signs And Symptoms: Positive: Negative - dysuria, hematuria - Allergies/Home Medications Allergies/Adverse Reactions: Allergies Allergy/AdvReac Type Severity Reaction Status Date / Time MS Penicillins [Penicillins] Allergy Unknown Unknown Verified 03/25/18 19:16 Reaction Details Home Medications: Home Medications Celebrex CAP* 200 mg PO DAILY 03/25/18 [History Confirmed 03/25/18] PMH/Surg Hx/FS Hx/Imm Hx Previously Healthy: No GI History: Reports: Other GI Disorders - inguinal hernia History: Reports: Hx Kidney Stones - 3-4 years ago, no issues at this time Musculoskeletal History: Reports: Hx Arthritis Sensory History: Reports: Hx Contacts or Glasses - glasses will be worn DOS Denies: Hx Hearing Aid Opthamlomology History: Reports: Hx Contacts or Glasses - glasses will be worn DOS Neurological History: Denies: Hx Headaches - Surgical History Surgery Procedure, Year, and Place: vasectomy 10years ago no anesthesia. wisdom teeth removed 5 years ago Hx Anesthesia Reactions: No Infectious Disease History: No Infectious Disease History: Denies: Traveled Outside the [place] in Last 30 Days - Family History Known Family History: Positive: Hypertension - Social History Lives: With Family Alcohol Use: Weekly Alcohol Amount: 2-=4 glasses of wine a week Hx Substance Use: No Substance Use Type: Reports: None Hx Tobacco Use: No Smoking Status (MU): Never Smoked Tobacco Review of Systems Negative: Fever Positive: Abdominal Pain - LLQ, Nausea Positive: flank pain. Negative: dysuria, hematuria Musculoskeletal: Other - back pain All Other Systems Reviewed And Are Negative: Yes Physical Exam - Summary Physical Exam Summary: VITAL SIGNS: Reviewed. GENERAL: Patient is a well-developed and nourished male who is lying comfortable in the stretcher. Patient is not in any acute respiratory distress. HEAD AND FACE: No signs of trauma. No ecchymosis, hematomas or skull depressions. No sinus tenderness. EYES: PERRLA, EOMI x 2, No injected conjunctiva, no nystagmus. EARS: Hearing grossly intact. Ear canals and tympanic membranes are within normal limits. MOUTH: Oropharynx within normal limits. NECK: Supple, trachea is midline, no adenopathy, no JVD, no carotid bruit, no c- spine tenderness, neck with full ROM. CHEST: Symmetric, no tenderness at palpation LUNGS: Clear to auscultation bilaterally. No wheezing or crackles. CVS: Regular rate and rhythm, S1 and S2 present, no murmurs or gallops appreciated. ABDOMEN: LLQ tenderness, left CVA tenderness EXTREMITIES: FROM in all major joints, no edema, no cyanosis or clubbing. NEURO: Alert and oriented x 3. No acute neurological deficits. Speech is normal and follows commands. SKIN: Dry and warm Triage Information Reviewed: Yes Vital Signs On Initial Exam: Initial Vitals Temp Pulse Resp BP Pulse Ox 98.1 F 69 16 145/80 98 03/25/18 19:10 03/25/18 19:10 03/25/18 19:10 03/25/18 19:10 03/25/18 19:10 Vital Signs Reviewed: Yes Diagnostics - Vital Signs Vital Signs Temp Pulse Resp BP Pulse Ox 03/25/18 19:10 98.1 F 69 16 145/80 98 - Laboratory Result Diagrams: 03/25/18 19:47 03/25/18 19:47 Lab Statement: Any lab studies that have been ordered have been reviewed, and results considered in the medical decision making process. - CT CT Abd/Pel CT Interpretation Completed By: Radiologist Summary of CT Findings: CT Abd/Pel reveals, per radiologist, IMPRESSION: Mild left hydronephrosis caused by a 4 x 5 mm calculus in the left proximal ureter. ED physician has reviewed this radiology report. Re-Evaluation - Re-Evaluation First Eval Re-Evaluation Time: 21:14 Change: Improved Comment: Patient states that he feels much better. Abdominal Pain Fem Course/Dx - Course Assessment/Plan: This patient is a 47 year old male presenting to [facility] with a chief complaint of abd pain since yesterday morning, at 0800. The pain is located in the LLQ. The pain is rated 3/10 in severity. Symptoms aggravated by nothing. Symptoms alleviated by nothing. Patient additionally reports nausea. Patient denies dysuria, hematuria. Patient admits a hx of renal calculi. CT Abd/ Pel reveals, per radiologist, IMPRESSION: Mild left hydronephrosis caused by a 4 x 5 mm calculus in the left proximal ureter. ED physician has reviewed this radiology report. Bloodwork Obtained. Urinalysis Obtained. In the ED course the patient was given Toradol, Reglan, Morphine, Flomax, NS 0.9% bolus IV. The pt is hemodynamically stable, alert and oriented x3. Patient will be discharged with a dx of left ureteral stone and renal colic and a prescription for oxycodone, Flomax, ibuprofen. Patient is advised to follow up with Dr. Erickson ( Urologist) in 2 days. The patient is agreeable with this plan. - Diagnoses Provider Diagnoses: Left ureteral stone, Renal colic Discharge - Sign-Out/Discharge Documenting (check all that apply): Patient Departure - Discharge Plan Condition: Stable Disposition: HOME Prescriptions: Ibuprofen TAB* [Motrin TAB* 800 MG] 800 mg PO ONCE PRN #30 tab MDD 4 PRN Reason: Pain oxyCODONE/Acetamin 5/325 MG* [Percocet 5/325 TAB*] 1 tab PO Q6H PRN #14 tab MDD 4 PRN Reason: Pain Tamsulosin CAP* [Flomax CAP*] 0.4 mg PO BEDTIME #7 cap Patient Education Materials: Renal Colic (ED), Ureteral Stones (ED) Referrals: Apple Werner MD [Primary Care Provider] - Mariano Erickson MD [Medical Doctor] - 2 Days Additional Instructions: Return to the ED for any new or worsening symptoms. - Attestation Statements Document Initiated by Scribe: Yes Documenting Scribe: Gunnar Harrell Provider For Whom Scribe is Documenting (Include Credential): Tomasa Mason MD Scribe Attestation: Gunnar Fairchild scribed for Tomasa Mason MD on 03/25/18 at 2115. Status of Lucas Document: Ready
[2018-03-25 19:59] LABS: ABS Basophils 0 10^3/ul (0-0.2); ABS Eosinophils 0.1 10^3/ul (0-0.6); ABS Monocytes 0.4 10^3/ul (0-0.8); ABS Neutrophils 3.4 10^3/ul (1.5-7.7); ABS Nucleated RBC 0 10^3/ul; Eosinophil % 1.3 %; Hematocrit 41 % (42-52); Hemoglobin 13.9 g/dl (14.0-18.0); Lymphocyte % 21.3 %; Mean Corpuscular HGB Conc 34 g/dl (31-36); Mean Corpuscular Hemoglobin 29 pg (27-31); Mean Corpuscular Volume 85 fL (80-94); Mean Platelet Volume 7.8 fL (7.4-10.4); Nucleated Red Blood Cells % 0; Platelet Count 146 10^3/ul (150-450); Red Blood Count 4.84 10^6/ul (4.00-5.40); Red Cell Distribution Width 14 % (10.5-15); White Blood Count 4.9 10^3/ul (3.5-10.8)
[2018-03-25 20:07] LABS: Activated Partial Thrombo Time 30.9 seconds (26.0-36.3); INR 0.96 (0.77-1.02)
[2018-03-25 20:22] LABS: Albumin 4.3 g/dL (3.2-5.2); Albumin/Globulin Ratio 1.8 (1-3); C Reactive Protein 1.53 mg/L (<8.01); Calcium 9.3 mg/dL (8.6-10.3); EGFR Non-African American 84.6 (>60); Globulin 2.4 g/dL (2-4); Magnesium 2.2 mg/dL (1.9-2.7); Potassium 4.2 mmol/L (3.5-5.0); Total Bilirubin 0.4 mg/dL (0.2-1.0); Total Protein 6.7 g/dL (6.4-8.9)
[2018-03-25 20:46] LABS: Urine Appearance Cloudy; Urine Bacteria Absent (Absent); Urine Bilirubin Negative (Negative); Urine Blood 3+ (Negative); Urine Color Yellow; Urine Glucose Negative (Negative); Urine Ketones 1+ (Negative); Urine Nitrite Negative (Negative); Urine Protein Negative (Negative); Urine Red Blood Cell 3+(>10/hpf) (Absent); Urine Urobilinogen Negative (Negative); Urine White Blood Cell Trace(0-5/hpf) (Absent)
[2018-03-25] MEDS ORDERED: Tamsulosin CAP* 0.4 MG PO ONE (21:10)
[2018-03-25 21:33] VITALS: BP 117/60
== END 2018-03-25 21:31 | disposition home or self-care (01) ==
LOC: ED 19:00
DX: N13.2 Hydronephrosis with renal and ureteral calculous obstruction (principal); N23 Unspecified renal colic; Z87.442 Personal history of urinary calculi; Z88.0 Allergy status to penicillin
CPT/HCPCS: 36415; 74176; 80053; 81003; 81015; 83690; 83735; 85025; 85610; 85730; 86140; 87086; 96374; 96375; 99283; J1885; J2270; J2765

== ENCOUNTER → 2018-12-04 07:51 | Day surgery (SDC) | payer OTHER ==
--- NOTE | 2018-11-29 16:59 | HP ---
CC: Dr. Werner; Dr. Erickson* ADMITTING HISTORY AND PHYSICAL: DATE OF ADMISSION: 12/04/18 ADMITTING DIAGNOSES: 1. Calculus, left proximal ureter. 2. Left hydronephrosis. PLANNED PROCEDURE: Cystoscopy, left retrograde and left stent insertion (to be followed in the near future by lithotripsy). SURGEON: Dr. Erickson. HISTORY OF PRESENT ILLNESS: Simone Arita is a 48-year-old gentleman who has had episodic flank pain, which actually has been going on for several months. He was seen by his primary care doctor and CT scan was obtained, which revealed a 5- to 6- mm calculus in the area of the left ureteropelvic junction. PAST MEDICAL HISTORY: Significant for renal calculi. PAST SURGICAL HISTORY: Significant for bilateral inguinal hernia repair and vasectomy. MEDICATIONS ON ADMISSION: None. ALLERGIES: PENICILLIN. FAMILY HISTORY: Negative for stones. SOCIAL HISTORY: He is a nonsmoker. REVIEW OF SYSTEMS: He was otherwise in excellent health. There is no history of diabetes mellitus or any other major systemic illness. PHYSICAL EXAMINATION GENERAL: Reveals a pleasant healthy appearing gentleman. VITAL SIGNS: Blood pressure is 114/72, pulse 65 per minute and regular, temperature 98.3, oxygen saturation 96% on room air. LUNGS: Clear bilaterally. CARDIOVASCULAR: Regular rate and rhythm. S1, S2. ABDOMEN: Soft with mild left flank tenderness. IMPRESSION AND PLAN: I had a detailed discussion with Simone regarding the management option. One of the complicating factor is that he will be traveling over the course of the next few weeks and would like to go ahead and proceed with left stent insertion before he leaves on his trip. He will be then be scheduled for the shockwave lithotripsy for definitive treatment of the calculus after his return from his travel, and I have discussed both the procedures in detail with him. Plan is cystoscopy, left retrograde, left stent insertion (to be followed in the near future by lithotripsy). [id number]/[facility] #: [id number] [facility]ITALRaul
[~2018-12-04 07:51] MED LIST changes: -Acetaminophen TAB* 325 MG PO PRN; +Buffered Lidocaine 1% SYRIN* 1 ML/SYRINGE INTRADERM ONE; -Buffered Lidocaine 1% SYRIN* 3 ML/SYR SYRINGE INTRADERM ONE; -Bupivacaine 0.5% W/EPI SDV* 30 ML VIAL ONE; -Clindamycin 900 MG IVPREMIX(* 900 MG/50 ML SDV IV ONE; +Dexamethasone IV* 4 MG/ML 1 ML (4 MG) IV SLOW PU ONE; +Famotidine IV* 10 MG/ML 2 ML (20 mg) IV ONE; +Famotidine IV* 10 MG/ML 2 ML (20 mg) ONE; +Furosemide IV* 10 MG/ML 2 ML VIAL (20 MG) ONE; -HYDROmorphone* 1 MG/ML 1 ML SYR IV PRN; -Ibuprofen TAB* 600 MG PO PRN; +Iohexol 180 (CONTRAST) 10 ML SDV IV ONE; +Lactated Ringers 1000 ML Bag* 1,000 ML IV SCH; +Levofloxacin 500 MG IVPREMIX(* 500 MG/100 ML BAG IVPB ONE; +Lidocaine 2% JELLY* 20 ML (for OR use) ONE; -Lidocaine 2% PF* 5 ML VIAL ONE; -Metoclopramide IV* 5 MG/ML 2 ML VIAL IV PRN; -Metoclopramide IV* 5 MG/ML 2 ML VIAL ONE; +Naloxone* 0.4 MG/ML 1 ML VIAL IV PRN; -Ondansetron INJ* 2 MG/ML VIAL ONE; -Propofol* 10 MG/ML 20 ML BTL IV PUSH ONE; -Scopolamine 1.5 mg* PATCH ONE; -Scopolamine 1.5 mg* PATCH TRANSDERM PRN; -Succinylcholine* 20 MG/ML 10 ML VIAL ONE; +Tamsulosin CAP* 0.4 MG ONE; -oxyCODONE TAB* 5 MG TAB ONE; -oxyCODONE TAB* 5 MG TAB PO PRN
[2018-12-04] MEDS: fentaNYL* 50 MCG/ML 2 ML VIAL (100 MCG VIAL) IV PRN ×2 (11:10→11:35)
[2018-12-04 12:46] VITALS: BP 130/88
--- NOTE | 2018-12-04 13:45 | OP ---
CC: Dr. Apple Werner; Dr. Erickson* OPERATIVE REPORT: DATE OF OPERATION: 12/04/18 - [facility] DATE OF : 68 SURGEON: Mariano Erickson MD ANESTHESIOLOGIST: Dr. John. ANESTHESIA: Local plus intravenous sedation. PRE-OP DIAGNOSES: 1. Left hydronephrosis. 2. Calculus, left ureteropelvic junction. POST-OP DIAGNOSES: 1. Left hydronephrosis. 2. Calculus, left ureteropelvic junction. OPERATIVE PROCEDURE: Cystoscopy, left retrograde pyelogram, left ureteral stent insertion. COMPLICATIONS: None. POSTOPERATIVE CONDITION: Stable. STENT USED: 6-Scottish stent, left ureter. INDICATIONS: Simone Arita is a 48-year-old gentleman, who has had longstanding intermittent left flank pain secondary to a calculus at the left ureteropelvic junction. He will be leaving on a trip shortly and is now being brought in for left stent insertion before his travels and will then require lithotripsy at a later date after his return. OPERATIVE FINDINGS: 1. Stricture, distal penile urethra. 2. Mild enlargement of prostate, especially median lobe. 3. Left hydronephrosis. DESCRIPTION OF PROCEDURE: After induction of intravenous sedation, 2% Xylocaine gel was administered per urethra. A 21-Scottish cystoscope was then introduced, a stricture was noted just inside the meatus at the level of the distal penile urethra and this was carefully dilated enough to allow easy insertion of the scope without causing any trauma. The remainder of the urethra was unremarkable. The prostate was mildly enlarged, especially the median lobe. The bladder was examined and appeared normal. A guidewire was introduced into the left ureter. Retrograde pyelogram revealed left hydronephrosis with mild left pelviectasis. A 6-Scottish stent was introduced and advanced under fluoroscopic monitoring with good proximal and distal positioning update. The bladder was emptied at the end of the procedure. The patient tolerated the procedure satisfactorily and was transferred back to the recovery area in stable condition. [id number]/[facility] #: [id number] [facility]
== END | disposition home or self-care (01) ==
LOC: OR 07:51
PROVIDERS: ATTEND Urology
DX: N13.2 Hydronephrosis with renal and ureteral calculous obstruction (principal); N35.919 Unspecified urethral stricture, male, unspecified site; N40.0 Benign prostatic hyperplasia without lower urinary tract symptoms; Z87.442 Personal history of urinary calculi; J30.89 Other allergic rhinitis
CPT/HCPCS: 74018; 74420; C1876; J1100; J1940; J1956; J2250; J3010

== ENCOUNTER → 2018-12-23 08:28 | Day surgery (SDC) | payer OTHER ==
[~2018-12-23 08:28] MED LIST changes: +DiMENhydriNATE IV* 50 MG/ML VIAL IV PUSH PRN; -Iohexol 180 (CONTRAST) 10 ML SDV IV ONE; -Lidocaine 2% JELLY* 20 ML (for OR use) ONE; +Ondansetron INJ* 2 MG/ML VIAL ONE; +Propofol* 10 MG/ML 20 ML BTL ONE; -Tamsulosin CAP* 0.4 MG ONE; +fentaNYL* 50 MCG/ML 2 ML VIAL (100 MCG VIAL) IV PRN
[2018-12-23 13:49] VITALS: BP 129/73
--- NOTE | 2018-12-23 23:09 | OP ---
CC: Dr. Apple Werner * DATE OF OPERATION: 12/23/18 - [facility] DATE OF : 68 SURGEON: Mariano Eirckson MD ANESTHESIOLOGIST: Dr. John ANESTHESIA: General. PRE-OP DIAGNOSIS: Left renal calculus. POST-OP DIAGNOSIS: Left renal calculus. OPERATIVE PROCEDURE: 1. Shock-wave lithotripsy of left renal calculus. 2. Cystoscopy and left stent removal. INDICATIONS: Simone Arita is a 48-year-old gentleman, who was initially evaluated for left flank pain secondary to an approximately 6 mm calculus in the area of the left ureteropelvic junction. He had undergone left stent insertion because of upcoming trip at that time and is now being brought in for definitive treatment with shock-wave lithotripsy. COMPLICATIONS: None. POSTOPERATIVE CONDITION: Stable. OPERATIVE FINDINGS: 1. Stricture of penile urethra (distal penile urethra). 2. Left renal calculus. DESCRIPTION OF PROCEDURE: After induction of general anesthesia, the patient was placed on the lithotripsy table in supine position. The calculus which was now in the lower pole of the left kidney was localized using fluoroscopy. Shock -wave lithotripsy was commenced at a rate of 60 shocks per minute. After the initial 300 shocks, there was a pause in lithotripsy for several minutes in an effort to minimize any potential trauma to the kidney. Lithotripsy was then resumed and a total of 2400 shocks were administered and good fragmentation was observed. Next, cystoscopy was performed. He was noted to have a stricture in the distal penile urethra. The remainder of the urethra was unremarkable. The bladder was entered and examined. The stent was seen exiting from the left ureter and was removed intact without difficulty. The bladder was emptied. The patient tolerated the procedure satisfactorily and was transferred back to the recovery area in stable condition. [id number]/[facility] #: [id number] MTDD
== END | disposition home or self-care (01) ==
LOC: OR 08:28
PROVIDERS: ATTEND Urology
DX: N20.0 Calculus of kidney (principal); J30.89 Other allergic rhinitis
CPT/HCPCS: 74018; J1100; J1940; J1956; J2250; J2405; J2704; J3010